=== PATIENT | female | born 1945 | race Caucasian/White ===

== ENCOUNTER → 2016-10-19 | Outpatient (CLI) | payer BC ==
[~2016-10-19] MED LIST: ASCA500 PO; B-COCAP2 PO; COLL500C PO; DILT360C24 PO; FENO160T PO; GLUCTAB7 PO; LEVO112T2 PO; LISI40TA PO; MAGN400T6 PO; MISCCAP80 PO; MOME50SP5; MONT1TAB3 PO; MULTCAP7 PO; PRM/3 PO; VITA400C15 PO; VITATAB19 PO
== END | disposition home or self-care (01) ==
LOC: C.MAMM 15:27
PROVIDERS: ATTEND Internal Medicine Endocrinology, Diabetes & Metabolism
DX: M85.80 Other specified disorders of bone density and structure, unspecified site (principal); E83.52 Hypercalcemia; Z79.890 Hormone replacement therapy

== ENCOUNTER → 2017-05-06 | Outpatient (CLI) | payer BC | END | disposition home or self-care (01) | LOC: C.PAPS 16:37 | PROVIDERS: ATTEND Obstetrics & Gynecology | DX: Z01.419 Encounter for gynecological examination (general) (routine) without abnormal findings (principal) ==

== ENCOUNTER → 2018-01-03 | Outpatient (CLI) | payer BC ==
--- NOTE | 2018-01-03 11:03 | DIAGNOSTIC IMAGING REPORT ---
R KNEE 1 OR 2 VIEWS ROUTINE CLINICAL HISTORY: M25.569 RIGHT KNEE PAIN COMPARISON: None. DISCUSSION: No acute fractures are visualized. There are mild osteoarthritic changes. There is mild medial joint compartment narrowing. There is a small dorsal patellar spur. IMPRESSION: Mild osteoarthritic change. No acute fractures. Electronically signed by: Sravan Fox M.D. 01/03/2018 11:01 AM Dictated Date/Time: 01/03/2018 11:01 AM
== END | disposition home or self-care (01) ==
LOC: C.RAD1850 10:42
PROVIDERS: ATTEND Family Medicine
DX: M25.561 Pain in right knee (principal)